=== PATIENT | male | born 1975 | race Caucasian/White ===

== ENCOUNTER → 2019-08-09 | Outpatient (CLI) | payer SELFPAY ==
[~2019-08-09] MED LIST: GADOBUTROL 10 MMOL/10 ML (GADAVIST) VIAL IV ONE
--- NOTE | 2019-08-09 13:27 | Diagnostic Imaging Report ---
PROCEDURE: MRI lumbar spine with and without contrast. TECHNIQUE: Multiplanar, multisequence MRI of the lumbar spine was performed with and without contrast. INDICATION: Low back pain and right lower extremity radiculopathy. COMPARISON: No prior studies are available for comparison. FINDINGS: Curvature and alignment of the lumbar spine is normal. Vertebral body heights are maintained. 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 There is some disc desiccation at L5-S1 and L4-5 levels compatible with degenerative disc disease. Conus is unremarkable at the L1 level. T12-L1: Central canal is widely patent. Neural foramina appear patent. L1-2: The central canal and neural foramina are widely patent. L2-3: Central canal and neural foramina appear patent. L3-4: There is some ligamentous thickening and facet changes with slight trefoil configuration of the spinal canal. The AP dimensions of the central canal remain within normal limits. There is mild neural foraminal narrowing bilaterally due to broad-based disc bulging. L4-5: There is broad-based disc/osteophyte complex as well as focal midline disc protrusion. This does result in significant central canal narrowing with AP dimensions of the canal approximately 3-4 mm. There is ligamentous thickening and facet changes. There is significant bilateral lateral recess stenosis as well as moderate bilateral neural foraminal stenosis. L5-S1: Broad-based disc bulging with facet changes and ligamentous thickening is seen. There is moderate central canal stenosis. Significant bilateral lateral recess stenosis and moderate bilateral neural foraminal stenosis is noted. Paraspinous tissues are unremarkable. No abnormal enhancement following contrast administration is seen. IMPRESSION: Lower lumbar spondylosis and facet arthropathy. Significant central canal stenosis is seen L4-5 level due to focal midline disc bulge. There is moderate central canal narrowing L5-S1. Lateral recess and neural foraminal stenosis is noted at both the L4-5 and L5-S1 levels. Dictated by: Dictated on workstation # [id number]
== END ==
LOC: RAD 12:03
PROVIDERS: ATTEND Nurse Practitioner Family
DX: M47.26 Other spondylosis with radiculopathy, lumbar region (principal); M46.96 Unspecified inflammatory spondylopathy, lumbar region; M48.07 Spinal stenosis, lumbosacral region; M51.16 Intervertebral disc disorders with radiculopathy, lumbar region
CPT/HCPCS: 72158